=== PATIENT | female | born 1970 | race African-American/Black ===

== ENCOUNTER 2017-04-18 20:49 | Emergency (ER) | payer OTHER ==
[2017-04-18] MEDS ORDERED: KETOROLAC TROMETHAMINE 60 MG/2 ML SDV IM ONE (21:29)
[2017-04-18] MEDS ORDERED: HYDROCODONE/ACETAMINOPHEN 5-325 MG 6 TAB/DSPK PO PRN (21:29)
--- NOTE | 2017-04-18 21:35 | ER Document Report ---
ED Neck/Back Problem - General Chief Complaint: Back Pain Stated Complaint: BACK PAIN Time Seen by Provider: 04/18/17 21:28 Notes: 46 yo female c/o mid low back pain x 4 days. + radiculopathy into left hip and thigh. pt reports hx/o chronic back pain since 2001 but increased pain x 4 days. pt denies specific trauma. 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 pt denies any fever, bowel/bladder dysfunction, paresthesias. no hx/o cancer. no recent spinal/epidural injections. TRAVEL OUTSIDE OF THE [place] IN LAST 30 DAYS: No - HPI Patient complains to provider of: Pain Onset: Gradual Timing: Still present Quality of pain: Achy, Burning Pain Level: 4 Context: Bending, Lifting Recent injury: No Associated symptoms: Radiation to leg - left, Lower back pain. 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 Lives with: Family Family History: Arthritis, CAD, CVA, DM, Hyperlipidemia, Hypertension - Past Medical History Cardiac Medical History: Reports: Hx Hypertension Renal/ Medical History: Denies: Hx Peritoneal Dialysis Musculoskeltal Medical History: Reports Hx Musculoskeletal Deformity, Reports Hx Musculoskeletal Trauma Past Surgical History: Reports: Hx Section - Immunizations Immunizations up to date: Yes Hx Diphtheria, Pertussis, Tetanus Vaccination: Yes Review of Systems - Review of Systems Constitutional: No symptoms reported EENT: No symptoms reported Cardiovascular: No symptoms reported Respiratory: No symptoms reported Gastrointestinal: No symptoms reported Genitourinary: No symptoms reported Female Genitourinary: No symptoms reported Musculoskeletal: No symptoms reported Skin: No symptoms reported Hematologic/Lymphatic: No symptoms reported Neurological/Psychological: No symptoms reported Physical Exam - Vital signs Vitals: Temp Pulse Resp BP Pulse Ox 98.5 F 79 22 H 141/79 H 99 04/18/17 20:56 04/18/17 20:56 04/18/17 20:56 04/18/17 20:56 04/18/17 20:56 Interpretation: Normal - General General appearance: Appears well, Alert - HEENT Head: Normocephalic, Atraumatic Eyes: Normal Pupils: PERRL - Respiratory Respiratory status: No respiratory distress Chest status: Nontender Breath sounds: Normal Chest palpation: Normal - Cardiovascular Rhythm: Regular Heart sounds: Normal auscultation Murmur: No - Abdominal Inspection: Normal Distension: No distension Bowel sounds: Normal Tenderness: Nontender Organomegaly: No organomegaly - Back Back: Tender - midline lumbar tenderness. + left SI tenderness. neg SLT - Extremities General upper extremity: Normal inspection, Nontender, Normal color, Normal ROM , Normal temperature General lower extremity: Normal inspection, Nontender, Normal color, Normal ROM , Normal temperature, Normal weight bearing. No: Stephen's sign - Neurological Neuro grossly intact: Yes Cognition: Normal Orientation: AAOx4 [place] Coma Scale Eye Opening: Spontaneous [place] Coma Scale Verbal: Oriented [place] Coma Scale Motor: Obeys Commands [place] Coma Scale Total: 15 Speech: Normal Motor strength normal: LUE, RUE, LLE, RLE Sensory: Normal - Psychological Associated symptoms: Normal affect, Normal mood - Skin Skin Temperature: Warm Skin Moisture: Dry Skin Color: Normal Course - Re-evaluation Re-evalutation: 04/18/17 21:37 H&P c/w acute nonspecific low back pain. no neurologic deficits or red flags identified. no emergent imaging indicated. will treat with Toradol IM. i will write for a short prescription of pain medication and muscle relaxant and have patient follow up with primary care tomorrow. pt agreeable with plan and stable for discharge - Vital Signs Vital signs: Temp Pulse Resp BP Pulse Ox 98.5 F 79 22 H 141/79 H 99 04/18/17 20:56 04/18/17 20:56 04/18/17 20:56 04/18/17 20:56 04/18/17 20:56 Discharge - Discharge Clinical Impression: Low back pain Qualifiers: Chronicity: acute Back pain laterality: midline Sciatica presence: with sciatica Sciatica laterality: sciatica of left side Qualified Code(s): M54.42 - Lumbago with sciatica, left side Condition: Stable Disposition: HOME, SELF-CARE Instructions: Ice Packs ([facility]), Low Back Pain ([facility]), Oral Narcotic Medication ( [facility]), Sciatica ([facility]), Toradol Injection ([facility]) Additional Instructions: You have been given an injection of Toradol for pain relief and a short prescription of narcotic pain medication and muscle relaxant please follow up with your primary care tomorrow for further evaluation return to ER for any worsening of pain, fever, loss of bowel/bladder control Prescriptions: Hydrocodone/Acetaminophen [[place] 5-325 mg Tablet] 1 tab PO Q4 PRN #15 tablet PRN Reason: Severe Pain Methocarbamol [Robaxin 500 Mg Tablet] 1,000 mg PO Q6 #30 tablet Forms: Elevated Blood Pressure, Return to Work
[2017-04-18 22:20] VITALS: BP 136/89
== END 2017-04-18 22:16 | disposition home or self-care (01) ==
LOC: ER 20:49
DX: M54.42 Lumbago with sciatica, left side (principal); I10 Essential (primary) hypertension; F17.210 Nicotine dependence, cigarettes, uncomplicated
CPT/HCPCS: 99283; 96372; J1885

== ENCOUNTER 2019-05-30 20:17 | Inpatient (IN) | payer OTHER ==
[2019-05-30 20:56] LABS: APPEARANCE,URINE SLIGHTLY-CLOUDY; BILIRUBIN,URINE NEGATIVE (NEGATIVE); COLOR,URINE YELLOW; GLUCOSE, URINE NEGATIVE (NEGATIVE); KETONES,URINE NEGATIVE (NEGATIVE); LEUKOCYTE ESTERASE,URINE TRACE (NEGATIVE); NITRITE,URINE POSITIVE (NEGATIVE); PROTEIN,URINE NEGATIVE (NEGATIVE); URINE SPECIFIC GRAVITY 1.011; UROBILINOGEN,URINE NEGATIVE mg/dL (<2.0)
[2019-05-31 02:46] LABS: HEMATOCRIT 22.1 % (36.0-47.0); MEAN CORPUSCULAR HEMOGLOBIN 18.5 pg (27.0-33.4); MEAN CORPUSCULAR HGB CONC 29.6 g/dL (32.0-36.0); MEAN CORPUSCULAR VOLUME 63 fl (80-97); PLATELET COUNT 518 10^3/uL (150-450); RED BLOOD COUNT 3.54 10^6/uL (3.72-5.28); WHITE BLOOD COUNT 6.9 10^3/uL (4.0-10.5)
[2019-05-31] MEDS ORDERED: CEPHALEXIN 500 MG CAPSULE PO ONE (02:54)
--- NOTE | 2019-05-31 02:58 | ER Document Report ---
ED General - General Chief Complaint: Weakness Stated Complaint: WEAKNESS Time Seen by Provider: 05/31/19 02:49 Primary Care Provider: SONIA RUIZ MD [Primary Care Provider] - Follow up in 3-5 days TRAVEL OUTSIDE OF THE [place] IN LAST 30 DAYS: No - HPI Notes: Patient is a 48-year-old female that presents to the emergency department for chief complaint of generalized fatigue. Patient states she has been feeling more tired than usual and having cramping in her legs and arms for "a while". She states this is been going on for at least a month. The reason she came to the emergency room today was because someone at work called her "slow" and she felt she needed to be evaluated. Patient does report history of frequent UTIs and was on antibiotics about a month ago. She denies any current dysuria or frequency. Patient states that she feels dehydrated although she reports good oral intake of fluids. She denies any cough, congestion, chest pain, abdominal pain, nausea/vomiting, diarrhea, and fevers. Past Medical History: Negative Past Surgical History: Negative Social History: Daily tobacco. Denies alcohol or drug use Family History: Reviewed and noncontributory for presenting illness Allergies: Reviewed, see documented allergy list. REVIEW OF SYSTEMS: CONSTITUTIONAL : No fever No chills No diaphoresis No recent illness Fatigue EENT: No vision changes No congestion No sore throat CARDIOVASCULAR: No chest pain No palpitations RESPIRATORY: No shortness of breath No cough No difficulty breathing GASTROINTESTINAL: No abdominal pain No nausea No vomiting No diarrhea GENITOURINARY: No dysuria No hematuria No difficulty urinating MUSCULOSKELETAL: No back pain No leg pain No arm pain SKIN: No rashes No lesions LYMPHATIC: No swollen, enlarged glands. NEUROLOGICAL: No lightheadedness No headache No weakness No paresthesias PSYCHIATRIC: No anxiety No depression PHYSICAL EXAMINATION: Vital signs reviewed, nursing noted reviewed. GENERAL: Well-appearing, well-nourished and in no acute distress. HEAD: Atraumatic, normocephalic. EYES: Eyes appear normal, extraocular movements intact, sclera anicteric, conjunctiva are normal. ENT: nares patent, oropharynx clear without exudates. Mildly dry mucous membranes. NECK: Normal range of motion, supple without lymphadenopathy LUNGS: Breath sounds clear to auscultation bilaterally and equal. No wheezes rales or rhonchi. HEART: Regular rate and rhythm without murmurs ABDOMEN: Soft, nontender, normoactive bowel sounds. No rebound, guarding, or rigidity. No masses appreciated. EXTREMITIES: Nontender, good range of motion, no pitting or edema. NEUROLOGICAL: No focal neurological deficits. Moves all extremities spontaneously Motor and sensory grossly intact on exam. PSYCH: Normal mood, normal affect. SKIN: Warm, Dry, normal turgor, no rashes or lesions noted on exposed skin - Related Data Allergies/Adverse Reactions: No Known Allergies Allergy (Verified 06/20/16 14:11) Past Medical History - Social History Smoking Status: Never Smoker Family History: Arthritis, CAD, CVA, DM, Hyperlipidemia, Hypertension Patient has suicidal ideation: No Patient has homicidal ideation: No - Past Medical History Cardiac Medical History: Reports: Hx Hypertension Renal/ Medical History: Denies: Hx Peritoneal Dialysis Musculoskeletal Medical History: Reports Hx Musculoskeletal Deformity, Reports Hx Musculoskeletal Trauma Past Surgical History: Reports: Hx Section - Immunizations Immunizations up to date: Yes Hx Diphtheria, Pertussis, Tetanus Vaccination: Yes Physical Exam - Vital signs Vitals: Temp Pulse Resp BP Pulse Ox 98.3 F 99 18 141/73 H 99 05/30/19 20:32 05/30/19 20:32 05/30/19 20:32 05/30/19 20:32 05/30/19 20:32 Course - Re-evaluation Re-evalutation: 05/31/19 02:56 Vitals reviewed. Nursing notes reviewed. Patient is alert and mentating appropriately. She is in no acute distress. She has not had any vomiting and is able to tolerate oral rehydration. Patient's UA is positive for infection. She will be started on Keflex for her acute UTI which may be exaggerating her chronic fatigue. EKG shows sinus rhythm without ectopy or dysrhythmia. 05/31/19 03:53 Patient's lab work shows acute anemia. Her hemoglobin is 6.6. She denies any black or bloody stools. Patient will be transfused 2 units packed red blood cells and admitted to the hospital for further work-up of her anemia. Care discussed with Dr. Ruiz who accepts admission. Laboratory 05/30/19 05/31/19 05/31/19 20:25 02:30 02:30 WBC 6.9 RBC 3.54 L Hgb 6.6 L Hct 22.1 L MCV 63 L MCH 18.5 L MCHC 29.6 L RDW 28.0 H Plt Count 518 H Total Counted 100 Seg Neutrophils % Not Reportable Seg Neuts % (Manual) 55 Lymphocytes % Not Reportable Lymphocytes % (Manual) 30 Monocytes % Not Reportable Monocytes % (Manual) 10 Eosinophils % Not Reportable Eosinophils % (Manual) 2 Basophils % Not Reportable Basophils % (Manual) 3 H Absolute Neutrophils Not Reportable Abs Neuts (Manual) 3.8 Absolute Lymphocytes Not Reportable Abs Lymphs (Manual) 2.1 Absolute Monocytes Not Reportable Abs Monocytes (Manual) 0.9 Absolute Eosinophils Not Reportable Absolute Eos (Manual) 0.0 Absolute Basophils Not Reportable Abs Basophils (Manual) 0.1 Giant Platelets PRESENT Platelet Comment INCREASED Poikilocytosis 2+ Basophilic Stippling PRESENT Anisocytosis 3+ Microcytosis 3+ Tear Drop Cells 1+ Ovalocytes 1+ Sodium 140.4 Potassium 4.4 Chloride 108 H Carbon Dioxide 24 Anion Gap 8 BUN 16 Creatinine 0.86 Est GFR ( Amer) > 60 Est GFR (Non-Af Amer) > 60 Glucose 99 Calcium 11.0 H Total Bilirubin 0.3 Direct Bilirubin 0.3 Neonat Total Bilirubin Not Reportable Neonat Direct Bilirubin Not Reportable Neonat Indirect Bili Not Reportable AST 25 ALT 18 Alkaline Phosphatase 74 Total Protein 7.9 Albumin 4.3 Urine Color YELLOW Urine Appearance SLIGHTLY-CLOUDY Urine pH 6.0 Ur Specific [place] 1.011 Urine Protein NEGATIVE Urine Glucose (UA) NEGATIVE Urine Ketones NEGATIVE Urine Blood SMALL H Urine Nitrite POSITIVE H Urine Bilirubin NEGATIVE Urine Urobilinogen NEGATIVE Ur Leukocyte Esterase TRACE H Urine WBC (Auto) 7 Urine RBC (Auto) 2 Urine Bacteria (Auto) 1+ Squamous Epi Cells Auto 1 Urine Mucus (Auto) OCC Urine Ascorbic Acid NEGATIVE - Vital Signs Vital signs: Temp Pulse Resp BP Pulse Ox 98.3 F 99 18 141/73 H 99 05/30/19 20:32 05/30/19 20:32 05/30/19 20:32 05/30/19 20:32 05/30/19 20:32 - Laboratory Result Diagrams: 05/31/19 02:30 05/31/19 02:30 Laboratory results interpreted by me: 05/30/19 05/31/19 05/31/19 20:25 02:30 02:30 RBC 3.54 L Hgb 6.6 L Hct 22.1 L MCV 63 L MCH 18.5 L MCHC 29.6 L RDW 28.0 H Plt Count 518 H Basophils % (Manual) 3 H Chloride 108 H Calcium 11.0 H Urine Blood SMALL H Urine Nitrite POSITIVE H Ur Leukocyte Esterase TRACE H - EKG Interpretation by Me Additional EKG results interpreted by me: 05/31/19 02:57 Interpreted by myself [id number]: Normal sinus rhythm, rate 81, borderline left axis, no STEMI Discharge - Discharge Clinical Impression: Acute UTI Fatigue Qualifiers: Fatigue type: unspecified Qualified Code(s): R53.83 - Other fatigue Anemia Qualifiers: Anemia type: other cause Other causes of anemia: other cause, not classified Qualified Code(s): D64.89 - Other specified anemias Condition: Stable Disposition: ADMITTED INPATIENT Admitting Provider: [facility] Unit Admitted: Telemetry Prescriptions: Cephalexin Monohydrate [Keflex 500 mg Capsule] 500 mg PO BID 5 Days capsule
[2019-05-31 03:00] LABS: ALBUMIN 4.3 g/dL (3.5-5.0); ALKALINE PHOSPHATASE 74 U/L (38-126); ANION GAP 8 (5-19); ASPARTATE AMINO TRANSFERASE 25 U/L (14-36); BILIRUBIN,DIRECT 0.3 mg/dL (0.0-0.4); BILIRUBIN,TOTAL 0.3 mg/dL (0.2-1.3); BLOOD UREA NITROGEN 16 mg/dL (7-20); CARBON DIOXIDE 24 mmol/L (22-30); CHLORIDE 108 mmol/L (98-107); GLUCOSE 99 mg/dL (75-110); POTASSIUM 4.4 mmol/L (3.6-5.0); TOTAL PROTEIN 7.9 g/dL (6.3-8.2)
[2019-05-31 03:46] LABS: ABSOLUTE LYMPHOCYTES# (MANUAL) 2.1 10^3/uL (0.5-4.7); ABSOLUTE MONOCYTES # (MANUAL) 0.9 10^3/uL (0.1-1.4); LYMPHOCYTES % (MANUAL) 30 % (13-45); SEGMENTED NEUTROPHILS % (MAN) 55 % (42-78); TOTAL CELLS COUNTED 100
[2019-05-31 03:47] LABS: BASOPHILS % (MANUAL) 3 % (0-2); EOSINOPHILS % (MANUAL) 2 % (0-6); MONOCYTES % (MANUAL) 10 % (3-13)
[2019-05-31 03:48] LABS: PLATELET COMMENT INCREASED; PLATELET GIANT PRESENT
[2019-05-31 03:49] LABS: ANISOCYTOSIS 3+; OVALOCYTES 1+; POIKILOCYTOSIS 2+; TEAR DROP CELLS 1+
[2019-05-31] MEDS ORDERED: NORMAL SALINE 250 ML IV PRN ×4 (03:50→17:26)
[2019-05-31 03:53] LABS: HEMOGLOBIN 6.6 g/dL (12.0-15.5)
[2019-05-31 09:23] LABS: ABSOLUTE RETICS # 0.073 10^6/uL (0.028-0.122); RETICULOCYTE COUNT (AUTO) 2.08 % (0.66-2.85)
[2019-05-31 10:26] LABS: FERRITIN 5.36 ng/mL (6.2-137.0); FOLATE 7.55 ng/mL (>2.76); IRON(TIBC) 17.4 ug/dL (37-170)
[2019-05-31 12:06] LABS: HEMATOCRIT 27.2 % (36.0-47.0); HEMOGLOBIN 8.6 g/dL (12.0-15.5); MEAN CORPUSCULAR HEMOGLOBIN 21.3 pg (27.0-33.4); MEAN CORPUSCULAR HGB CONC 31.6 g/dL (32.0-36.0); PLATELET COUNT 466 10^3/uL (150-450); RED BLOOD COUNT 4.03 10^6/uL (3.72-5.28); RED CELL DISTRIBUTION WIDTH 31.8 % (11.5-14.0); WHITE BLOOD COUNT 5.3 10^3/uL (4.0-10.5)
[2019-05-31 12:24] LABS: ANION GAP 8 (5-19); BLOOD UREA NITROGEN 15 mg/dL (7-20); CALCIUM 10.6 mg/dL (8.4-10.2); CARBON DIOXIDE 25 mmol/L (22-30); CHLORIDE 107 mmol/L (98-107); GLUCOSE 115 mg/dL (75-110); POTASSIUM 4.5 mmol/L (3.6-5.0)
[2019-05-31 13:11] LABS: MEAN CORPUSCULAR VOLUME 67 fl (80-97)
[2019-05-31 13:19] LABS: ABSOLUTE LYMPHOCYTES# (MANUAL) 1.3 10^3/uL (0.5-4.7); ABSOLUTE MONOCYTES # (MANUAL) 0.1 10^3/uL (0.1-1.4); BASOPHILS % (MANUAL) 1 % (0-2); EOSINOPHILS % (MANUAL) 2 % (0-6); LYMPHOCYTES % (MANUAL) 25 % (13-45); MONOCYTES % (MANUAL) 1 % (3-13); SEGMENTED NEUTROPHILS % (MAN) 71 % (42-78); TOTAL CELLS COUNTED 100
[2019-05-31 13:20] LABS: ANISOCYTOSIS 4+; BURR CELLS 1+; HYPOCHROMASIA 3+; OVALOCYTES 1+; PLATELET COMMENT INCREASED; POIKILOCYTOSIS 1+; POLYCHROMASIA SLIGHT
--- NOTE | 2019-05-31 17:25 | PDOC H&P ---
History of Present Illness Admission Date/PCP: 05/31/19 03:55 SONIA RUIZ MD History of Present Illness: TYRELL MONTGOMERY is a 48 year old female, Patient was in the office on April 17, 2019 for follow-up evaluation, at the time she had comprehensive blood work including hemogram, the hemoglobin was 6 from the blood work done in the office on 04/17/2019, she was called on her cell phone, on the line phone without any response a letter was sent to her residence she did not call the office back until today when she presented to the emergency room with severe fatigue and she was found again to be anemic with hemoglobin of 6 it is iron deficiency type anemia. She denied any GI bleed or any vaginal bleeding.She is a recalcitrant smoker, she is also found to have hypercalcemia ,the serum PTH was 78 which is elevated, suggesting that the hypercalcemia is PTH mediated consistent with primary hyperparathyroidism and not necessarily a malignant hypercalcemia. Patient will be transfused but she will need GI endoscopy before she is discharged on this admission especially in this patient that have shown a pattern of noncompliance and inconsistent in her care as indicated patient was known to have severe anemia since April 17, 2019 but patient could not be reached by all the available means that we know how including telephone, mail etc. Past Medical History Cardiac Medical History: Reports: Hypertension Hematology: Reports: Anemia - won't take iron Past Surgical History Past Surgical History: Reports: Section Social History Smoking Status: Current Every Day Smoker Cigarettes Packs Per Day: 1 Last Time Smoked: 05/30/2019 Frequency of Alcohol Use: None Hx Recreational Drug Use: No Drugs: None Hx Prescription Drug Abuse: No Family History Family History: Arthritis, CAD, CVA, DM, Hyperlipidemia, Hypertension Parental Family History Reviewed: Yes Children Family History Reviewed: Yes Sibling(s) Family History Reviewed.: Yes Medication/Allergy Home Medications: No Home Medications 05/31/19 Allergies/Adverse Reactions: No Known Allergies Allergy (Verified 05/31/19 08:01) Review of Systems Constitutional: PRESENT: fatigue Eyes: ABSENT: visual disturbances Ears: ABSENT: hearing changes Cardiovascular: ABSENT: chest pain, dyspnea on exertion, edema, orthropnea, palpitations Respiratory: ABSENT: cough, hemoptysis Gastrointestinal: ABSENT: abdominal pain, constipation, diarrhea, hematemesis, hematochezia, nausea, vomiting Genitourinary: ABSENT: dysuria, hematuria Musculoskeletal: ABSENT: joint swelling Integumentary: ABSENT: rash, wounds Neurological: ABSENT: abnormal gait, abnormal speech, confusion, dizziness, focal weakness, syncope Psychiatric: ABSENT: anxiety, depression, homidical ideation, suicidal ideation Endocrine: ABSENT: cold intolerance, heat intolerance, menstrual abnormalities, polydipsia, polyuria Hematologic/Lymphatic: ABSENT: easy bleeding, easy bruising, lymphadenopathy Physical Exam Vital Signs: Temp Pulse Resp BP Pulse Ox 98.5 F 83 18 139/80 H 100 05/31/19 10:00 05/31/19 14:00 05/31/19 10:00 05/31/19 10:00 05/31/19 10:00 Intake & Output 05/30/19 05/31/19 06/01/19 06:59 06:59 06:59 Intake Total 0 1070 Balance 0 1070 Weight 82.6 kg General appearance: PRESENT: no acute distress Head exam: PRESENT: atraumatic, normocephalic Eye exam: PRESENT: conjunctiva pale Ear exam: PRESENT: normal external ear exam Mouth exam: PRESENT: moist, tongue midline Neck exam: PRESENT: full ROM Respiratory exam: PRESENT: clear to auscultation isacc Cardiovascular exam: PRESENT: RRR, +S1, +S2 Vascular exam: PRESENT: normal capillary refill GI/Abdominal exam: PRESENT: normal bowel sounds, soft Rectal exam: PRESENT: deferred Neurological exam: PRESENT: alert, CN II-XII grossly intact. ABSENT: motor sensory deficit Skin exam: PRESENT: dry, intact, warm Results Laboratory Results: 05/31/19 11:46 05/31/19 11:46 05/30/19 05/31/19 05/31/19 20:25 02:30 02:30 WBC 6.9 RBC 3.54 L Hgb 6.6 L Hct 22.1 L MCV 63 L MCH 18.5 L MCHC 29.6 L RDW 28.0 H Plt Count 518 H Seg Neutrophils % Not Reportable Lymphocytes % Not Reportable Monocytes % Not Reportable Eosinophils % Not Reportable Basophils % Not Reportable Absolute Neutrophils Not Reportable Absolute Lymphocytes Not Reportable Absolute Monocytes Not Reportable Absolute Eosinophils Not Reportable Absolute Basophils Not Reportable Retic Count (auto) Sodium 140.4 Potassium 4.4 Chloride 108 H Carbon Dioxide 24 Anion Gap 8 BUN 16 Creatinine 0.86 Est GFR ( Amer) > 60 Est GFR (Non-Af Amer) > 60 Glucose 99 Calcium 11.0 H Iron TIBC % Saturation Ferritin Total Bilirubin 0.3 AST 25 Alkaline Phosphatase 74 Total Protein 7.9 Albumin 4.3 Vitamin B12 Folate PTH Intact Urine Color YELLOW Urine Appearance SLIGHTLY-CLOUDY Urine pH 6.0 Ur Specific [place] 1.011 Urine Protein NEGATIVE Urine Glucose (UA) NEGATIVE Urine Ketones NEGATIVE Urine Blood SMALL H Urine Nitrite POSITIVE H Ur Leukocyte Esterase TRACE H Urine WBC (Auto) 7 Urine RBC (Auto) 2 Blood Type Antibody Screen 05/31/19 05/31/19 05/31/19 02:30 02:30 02:30 WBC RBC Hgb Hct MCV MCH MCHC RDW Plt Count Seg Neutrophils % Lymphocytes % Monocytes % Eosinophils % Basophils % Absolute Neutrophils Absolute Lymphocytes Absolute Monocytes Absolute Eosinophils Absolute Basophils Retic Count (auto) Not Reportable 2.08 Sodium Potassium Chloride Carbon Dioxide Anion Gap BUN Creatinine Est GFR ( Amer) Est GFR (Non-Af Amer) Glucose Calcium Iron Cancelled TIBC Cancelled % Saturation Cancelled Ferritin 5.36 L Total Bilirubin AST Alkaline Phosphatase Total Protein Albumin Vitamin B12 799.0 Folate 7.55 PTH Intact Urine Color Urine Appearance Urine pH Ur Specific [place] Urine Protein Urine Glucose (UA) Urine Ketones Urine Blood Urine Nitrite Ur Leukocyte Esterase Urine WBC (Auto) Urine RBC (Auto) Blood Type Antibody Screen 05/31/19 05/31/19 05/31/19 02:30 04:15 11:46 WBC 5.3 RBC 4.03 Hgb 8.6 L Hct 27.2 L MCV 67 L D MCH 21.3 L MCHC 31.6 L RDW 31.8 H Plt Count 466 H Seg Neutrophils % Not Reportable Lymphocytes % Monocytes % Eosinophils % Basophils % Absolute Neutrophils Absolute Lymphocytes Absolute Monocytes Absolute Eosinophils Absolute Basophils Retic Count (auto) Sodium Potassium Chloride Carbon Dioxide Anion Gap BUN Creatinine Est GFR ( Amer) Est GFR (Non-Af Amer) Glucose Calcium Iron 17.4 L TIBC 442 % Saturation 4 Ferritin Total Bilirubin AST Alkaline Phosphatase Total Protein Albumin Vitamin B12 Folate PTH Intact Urine Color Urine Appearance Urine pH Ur Specific [place] Urine Protein Urine Glucose (UA) Urine Ketones Urine Blood Urine Nitrite Ur Leukocyte Esterase Urine WBC (Auto) Urine RBC (Auto) Blood Type A POSITIVE Antibody Screen NEGATIVE 05/31/19 05/31/19 11:46 15:19 WBC RBC Hgb Hct MCV MCH MCHC RDW Plt Count Seg Neutrophils % Lymphocytes % Monocytes % Eosinophils % Basophils % Absolute Neutrophils Absolute Lymphocytes Absolute Monocytes Absolute Eosinophils Absolute Basophils Retic Count (auto) Sodium 140.0 Potassium 4.5 Chloride 107 Carbon Dioxide 25 Anion Gap 8 BUN 15 Creatinine 0.75 Est GFR ( Amer) > 60 Est GFR (Non-Af Amer) Glucose 115 H Calcium 10.6 H Iron TIBC % Saturation Ferritin Total Bilirubin AST Alkaline Phosphatase Total Protein Albumin Vitamin B12 Folate PTH Intact 74.5 H Urine Color Urine Appearance Urine pH Ur Specific [place] Urine Protein Urine Glucose (UA) Urine Ketones Urine Blood Urine Nitrite Ur Leukocyte Esterase Urine WBC (Auto) Urine RBC (Auto) Blood Type Antibody Screen Assessment & Plan - Diagnosis (1) Iron deficiency anemia Qualifiers: Iron deficiency anemia type: unspecified iron deficiency Qualified Code(s): D50.9 - Iron deficiency anemia, unspecified Is this a current diagnosis for this admission?: Yes Plan: She presented with severe symptomatic iron deficiency anemia, she will be transfused with packed red blood cells, she will need GI endoscopy consultation will be requested from surgery (2) Primary hyperparathyroidism Is this a current diagnosis for this admission?: Yes Plan: She has primary hyperparathyroidism need further evaluation to determine need for surgery, she will need bone density measurement,etc
--- NOTE | 2019-05-31 17:34 | EKG REPORT ---
SEVERITY:- OTHERWISE NORMAL ECG - SINUS RHYTHM BORDERLINE LEFT AXIS DEVIATION : Confirmed by: Bridgett Lucia MD 31-May-2019 17:34:13
--- NOTE | 2019-05-31 17:45 | PDOC CONSULTATION ---
Consultation Consult Date: 05/31/19 Provider Consulted: RAISA RIOS Consult reason:: anemia History of Present Illness Admission Date/PCP: 05/31/19 03:55 SONIA RUIZ MD Patient complains of: weakness History of Present Illness: TYRELL MONTGOMERY is a 48 year old female, poorly compliant, who self checked to the Ed c/o weakness. Her CBC showed moderately severe anemia with an H/H of 6.6 and 22.21. She denies BRBPR, hematemesis, general symptoms, fever, weight loss, loss of appetite. She has been transfused 2 units of PRBC with an appropriately increased H/H 8.6/27.2. Inciswntally, her calcium level is elevated (11) with an elevated PTH (74.5). Past Medical History Cardiac Medical History: Reports: Hypertension Hematology: Reports: Anemia - won't take iron Past Surgical History Past Surgical History: Reports: Section Social History Smoking Status: Current Every Day Smoker Cigarettes Packs Per Day: 1 Last Time Smoked: 05/30/2019 Frequency of Alcohol Use: None Hx Recreational Drug Use: No Drugs: None Hx Prescription Drug Abuse: No Family History Family History: Arthritis, CAD, CVA, DM, Hyperlipidemia, Hypertension Parental Family History Reviewed: No Children Family History Reviewed: No Sibling(s) Family History Reviewed.: No Medication/Allergy Home Medications: No Home Medications 05/31/19 Allergies/Adverse Reactions: No Known Allergies Allergy (Verified 05/31/19 08:01) Physical Exam Vital Signs: Temp Pulse Resp BP Pulse Ox 98.5 F 83 18 139/80 H 100 05/31/19 10:00 05/31/19 14:00 05/31/19 10:00 05/31/19 10:00 05/31/19 10:00 Intake & Output 05/30/19 05/31/19 06/01/19 06:59 06:59 06:59 Intake Total 0 1070 Balance 0 1070 Weight 82.6 kg General appearance: PRESENT: no acute distress Head exam: PRESENT: atraumatic Eye exam: PRESENT: EOMI Mouth exam: PRESENT: moist, neck supple Teeth exam: PRESENT: poor dentation Neck exam: PRESENT: full ROM Respiratory exam: PRESENT: clear to auscultation isacc Cardiovascular exam: PRESENT: RRR GI/Abdominal exam: PRESENT: normal bowel sounds, soft Rectal exam: PRESENT: deferred Extremities exam: PRESENT: full ROM Musculoskeletal exam: PRESENT: full ROM Neurological exam: PRESENT: alert, awake Psychiatric exam: PRESENT: appropriate affect Skin exam: PRESENT: warm Results Laboratory Results: 05/31/19 11:46 05/31/19 11:46 05/30/19 05/31/19 05/31/19 20:25 02:30 02:30 WBC 6.9 RBC 3.54 L Hgb 6.6 L Hct 22.1 L MCV 63 L MCH 18.5 L MCHC 29.6 L RDW 28.0 H Plt Count 518 H Seg Neutrophils % Not Reportable Lymphocytes % Not Reportable Monocytes % Not Reportable Eosinophils % Not Reportable Basophils % Not Reportable Absolute Neutrophils Not Reportable Absolute Lymphocytes Not Reportable Absolute Monocytes Not Reportable Absolute Eosinophils Not Reportable Absolute Basophils Not Reportable Retic Count (auto) Sodium 140.4 Potassium 4.4 Chloride 108 H Carbon Dioxide 24 Anion Gap 8 BUN 16 Creatinine 0.86 Est GFR ( Amer) > 60 Est GFR (Non-Af Amer) > 60 Glucose 99 Calcium 11.0 H Iron TIBC % Saturation Ferritin Total Bilirubin 0.3 AST 25 Alkaline Phosphatase 74 Total Protein 7.9 Albumin 4.3 Vitamin B12 Folate PTH Intact Urine Color YELLOW Urine Appearance SLIGHTLY-CLOUDY Urine pH 6.0 Ur Specific Dearing 1.011 Urine Protein NEGATIVE Urine Glucose (UA) NEGATIVE Urine Ketones NEGATIVE Urine Blood SMALL H Urine Nitrite POSITIVE H Ur Leukocyte Esterase TRACE H Urine WBC (Auto) 7 Urine RBC (Auto) 2 Blood Type Antibody Screen 05/31/19 05/31/19 05/31/19 02:30 02:30 02:30 WBC RBC Hgb Hct MCV MCH MCHC RDW Plt Count Seg Neutrophils % Lymphocytes % Monocytes % Eosinophils % Basophils % Absolute Neutrophils Absolute Lymphocytes Absolute Monocytes Absolute Eosinophils Absolute Basophils Retic Count (auto) Not Reportable 2.08 Sodium Potassium Chloride Carbon Dioxide Anion Gap BUN Creatinine Est GFR ( Amer) Est GFR (Non-Af Amer) Glucose Calcium Iron Cancelled TIBC Cancelled % Saturation Cancelled Ferritin 5.36 L Total Bilirubin AST Alkaline Phosphatase Total Protein Albumin Vitamin B12 799.0 Folate 7.55 PTH Intact Urine Color Urine Appearance Urine pH Ur Specific Dearing Urine Protein Urine Glucose (UA) Urine Ketones Urine Blood Urine Nitrite Ur Leukocyte Esterase Urine WBC (Auto) Urine RBC (Auto) Blood Type Antibody Screen 05/31/19 05/31/19 05/31/19 02:30 04:15 11:46 WBC 5.3 RBC 4.03 Hgb 8.6 L Hct 27.2 L MCV 67 L D MCH 21.3 L MCHC 31.6 L RDW 31.8 H Plt Count 466 H Seg Neutrophils % Not Reportable Lymphocytes % Monocytes % Eosinophils % Basophils % Absolute Neutrophils Absolute Lymphocytes Absolute Monocytes Absolute Eosinophils Absolute Basophils Retic Count (auto) Sodium Potassium Chloride Carbon Dioxide Anion Gap BUN Creatinine Est GFR ( Amer) Est GFR (Non-Af Amer) Glucose Calcium Iron 17.4 L TIBC 442 % Saturation 4 Ferritin Total Bilirubin AST Alkaline Phosphatase Total Protein Albumin Vitamin B12 Folate PTH Intact Urine Color Urine Appearance Urine pH Ur Specific Dearing Urine Protein Urine Glucose (UA) Urine Ketones Urine Blood Urine Nitrite Ur Leukocyte Esterase Urine WBC (Auto) Urine RBC (Auto) Blood Type A POSITIVE Antibody Screen NEGATIVE 05/31/19 05/31/19 11:46 15:19 WBC RBC Hgb Hct MCV MCH MCHC RDW Plt Count Seg Neutrophils % Lymphocytes % Monocytes % Eosinophils % Basophils % Absolute Neutrophils Absolute Lymphocytes Absolute Monocytes Absolute Eosinophils Absolute Basophils Retic Count (auto) Sodium 140.0 Potassium 4.5 Chloride 107 Carbon Dioxide 25 Anion Gap 8 BUN 15 Creatinine 0.75 Est GFR ( Amer) > 60 Est GFR (Non-Af Amer) Glucose 115 H Calcium 10.6 H Iron TIBC % Saturation Ferritin Total Bilirubin AST Alkaline Phosphatase Total Protein Albumin Vitamin B12 Folate PTH Intact 74.5 H Urine Color Urine Appearance Urine pH Ur Specific Dearing Urine Protein Urine Glucose (UA) Urine Ketones Urine Blood Urine Nitrite Ur Leukocyte Esterase Urine WBC (Auto) Urine RBC (Auto) Blood Type Antibody Screen Status: Imported from PACS Assessment & Plan - Diagnosis (1) Anemia Qualifiers: Anemia type: other cause Other causes of anemia: other cause, not classifie d Qualified Code(s): D64.89 - Other specified anemias - Plan Summary Plan Summary: A/ 48 y/o female with anemia of unknown cause no associated symptoms H/H= 6.6/22.1 Transfusion of 2 units PRBC with appropriate elevation of H/H = 8.6/27 P/ Plan EGD / colonoscopy w/ biopsy in AM under IV sedation Procedure, risks, benefits, complications explained to the patient, her questions were answered. However she is hesitant to undergo the procedure. I have communicate the above to Dr. Ruiz, who will approach the patient.
[2019-05-31] MEDS ORDERED: BISACODYL 5 MG TABEC PO ONE (19:00)
[2019-05-31] MEDS ORDERED: NA PHOS,M-B/NA PHOS,DI-BA (ADULT) 133 ML ENEMA PR ONE (19:00)
[2019-05-31] MEDS ORDERED: PEG 3350/NA SULF,BICARB,CL/KCL 4000 ML PO ONE (19:30)
[2019-06-01 06:25] LABS: FERRITIN 8.05 ng/mL (6.2-137.0)
[2019-06-01 06:27] LABS: HEMATOCRIT 30.8 % (36.0-47.0); HEMOGLOBIN 9.8 g/dL (12.0-15.5); MEAN CORPUSCULAR HEMOGLOBIN 22.4 pg (27.0-33.4); MEAN CORPUSCULAR HGB CONC 31.8 g/dL (32.0-36.0); MEAN CORPUSCULAR VOLUME 70 fl (80-97); PLATELET COUNT 447 10^3/uL (150-450); RED BLOOD COUNT 4.38 10^6/uL (3.72-5.28); RED CELL DISTRIBUTION WIDTH 32.4 % (11.5-14.0); WHITE BLOOD COUNT 7.6 10^3/uL (4.0-10.5)
[2019-06-01 06:28] LABS: RETICULOCYTE COUNT (AUTO) 1.37 % (0.66-2.85)
[2019-06-01 06:55] LABS: FOLATE 6.08 ng/mL (>2.76)
[2019-06-01] MEDS ORDERED: ACETAMINOPHEN 325 MG TABLET PO PRN (08:00)
--- NOTE | 2019-06-01 10:12 | Progress Note ---
Provider Note Provider Note: Events noted. Patient declines offer for EGD/colonoscopy. Despite conversation with the patient in front of the nurse yesterday for a very long time, she still declines the procedures A/ Anemia, unknown cause Patient is declining both procedures for personal reasons P/ I will sign off. I will be available to perform EGD and colonoscopy if she wishes both procedures in the future.
[2019-06-01 11:30] VITALS: BP 125/84
--- NOTE | 2019-06-01 20:46 | PDOC DISCHARGE SUMMARY ---
General - Admit/Disc Date/PCP Admission Date/Primary Care Provider: 05/31/19 03:55 SONIA RUIZ MD Discharge Date: 06/01/19 - Discharge Diagnosis (1) Iron deficiency anemia Is this a current diagnosis for this admission?: Yes (2) Primary hyperparathyroidism Is this a current diagnosis for this admission?: Yes - Additional Information Discharge Diet: As Tolerated Discharge Activity: Activity As Tolerated Prescriptions: Ferrous Sulfate [Albafort] 325 mg PO BID #180 tablet Home Medications: Ferrous Sulfate [Albafort] 325 mg PO BID #180 tablet 06/01/19 History of Present Illness History of Present Illness: TYRELL MONTGOMERY is a 48 year old female, Patient was in the office on April 17, 2019 for follow-up evaluation, at the time she had comprehensive blood work including hemogram, the hemoglobin was 6 from the blood work done in the office on 04/17/2019, she was called on her cell phone, on the line phone without any response a letter was sent to her residence she did not call the office back until today when she presented to the emergency room with severe fatigue and she was found again to be anemic with hemoglobin of 6 it is iron deficiency type anemia. She denied any GI bleed or any vaginal bleeding.She is a recalcitrant smoker, she is also found to have hypercalcemia ,the serum PTH was 78 which is elevated, suggesting that the hypercalcemia is PTH mediated consistent with primary hyperparathyroidism and not necessarily a malignant hypercalcemia. Patient will be transfused but she will need GI endoscopy before she is discharged on this admission especially in this patient that have shown a pattern of noncompliance and inconsistent in her care as indicated patient was known to have severe anemia since April 17, 2019 but patient could not be reached by all the available means that we know how including telephone, mail etc. Hospital Course Hospital Course: Patient was admitted for the management of severe iron deficiency anemia, the hemoglobin was 6, she was transfused with red blood cells. She was also found to have pulmonary hyperparathyroidism with elevated serum calcium. She was advised to undergo GI endoscopy for the evaluation of the iron deficiency anemia but patient refused, despite multiple counseling and advise for to get the procedure done she consistently and persistently refused to have it done.She decided to leave the hospital today Physical Exam Vital Signs: Temp Pulse Resp BP Pulse Ox 98.9 F 71 18 125/84 100 06/01/19 11:29 06/01/19 11:29 06/01/19 11:29 06/01/19 11:29 06/01/19 11:29 Intake & Output 05/31/19 06/01/19 06/02/19 06:59 06:59 06:59 Intake Total 0 2560 Balance 0 2560 Weight 82.6 kg 82.8 kg General appearance: PRESENT: no acute distress Eye exam: PRESENT: PERRLA Neck exam: PRESENT: full ROM Respiratory exam: PRESENT: clear to auscultation isacc Cardiovascular exam: PRESENT: RRR, +S1, +S2 Vascular exam: PRESENT: normal capillary refill GI/Abdominal exam: PRESENT: normal bowel sounds, soft Rectal exam: PRESENT: deferred Neurological exam: PRESENT: alert, CN II-XII grossly intact Psychiatric exam: PRESENT: appropriate affect, normal mood Skin exam: PRESENT: dry, intact, warm Results Laboratory Results: 06/01/19 04:39 05/31/19 11:46 05/31/19 06/01/19 06/01/19 04:15 04:39 04:39 WBC RBC Hgb Hct MCV MCH MCHC RDW Plt Count Retic Count (auto) 1.37 Ferritin 8.05 Vitamin B12 722.0 Folate 6.08 Blood Type A POSITIVE Antibody Screen NEGATIVE 06/01/19 04:39 WBC 7.6 RBC 4.38 Hgb 9.8 L Hct 30.8 L MCV 70 L MCH 22.4 L MCHC 31.8 L RDW 32.4 H Plt Count 447 Retic Count (auto) Ferritin Vitamin B12 Folate Blood Type Antibody Screen 05/30/19 20:25 Clean Catch Midstream Urine Culture - Final Escherichia Coli Qualifiers - * PATIENT BEING DISCHARGED WITH ANY OF THE FOLLOWING DIAGNOSIS: No VTE patient discharged on overlapping Therapy?: No Reason(s) for not prescribing Overlap Therapy:: Not indicated Stroke Pt being discharged on Anti-thrombolytic therapy?: No Reason(s) for not prescribing Anti-thrombolytic therapy:: Not indicated Stroke Pt being discharged on Anti-coagulation therapy?: No Reason(s) for not prescribing Anti-coagulation therapy:: Not indicated Stroke Pt being discharged on Statins?: No Reason(s) for not prescribing Statins therapy:: Not indicated NM Pt being discharged on Aspirin therapy?: No Reason(s) for not prescribing Aspirin therapy:: Not indicated NM Pt being discharged on Statins?: No Reason(s) for not prescribing Statin therapy:: Not indicated NM Pt discharged ACEI/ARBS?: No Reason(s) for not prescribing ACEI/ARBS:: Not indicated Acute Heart Failure - Is this a Heart Failure Patient?: No d) Discharged on evidence-based Beta courtney(carvedilol, sustained release met oprolol succinate, or bisoprolol)?: Yes 3. Anticoagulant therapy for permanect/persistent/paraoxysmal Afib or Aflutter: N/A
== END 2019-06-01 12:30 | disposition home or self-care (01) | DRG 812 ==
LOC: ER 20:17 → EH 05-31 03:55 → 3N 05-31 09:17
PROVIDERS: ADMIT Internal Medicine; ATTEND Internal Medicine
PROC: 30233N1 Transfusion of Nonautologous Red Blood Cells into Peripheral Vein, Percutaneous Approach (ICD-10-PCS; principal; 2019-05-31)
DX: D50.9 Iron deficiency anemia, unspecified (principal); E21.3 Hyperparathyroidism, unspecified; Z53.29 Procedure and treatment not carried out because of patient's decision for other reasons; F17.210 Nicotine dependence, cigarettes, uncomplicated; Z91.19 Patient's noncompliance with other medical treatment and regimen; Z82.49 Family history of ischemic heart disease and other diseases of the circulatory system; Z82.3 Family history of stroke; Z83.3 Family history of diabetes mellitus
CPT/HCPCS: 36415; 36430; 80053; 81001; 82378; 82607; 82728; 82746; 83540; 83550; 83970; 85025; 85027; 85045; 86850; 86900; 86901; 86920; 86922; 87086; 87088; 87186; 93005; 93010; 99284; J3490; P9016

== ENCOUNTER 2020-07-03 15:26 | Emergency (ER) | payer BC ==
[2020-07-03 15:32] VITALS: BP 123/75
[2020-07-03] MEDS ORDERED: TETRACAINE HCL 0.5% OPH SOLN 4 ML OS ONE (16:12)
--- NOTE | 2020-07-03 17:01 | ER Document Report ---
HPI - HPI Patient complains to provider of: Left eye pain Time Seen by Provider: 07/03/20 16:06 Pain Level: 3 Notes: 49-year-old female to the emergency department with complaints of left eye pain that began last night. She states she awoke this morning with continued pain and like her eye was matted shut. She states she has had a lot of photophobia as well as discharge from the eye. She does not wear contacts or glasses. She states that she noticed her symptoms started after she was at work and thinks she may have gotten a piece of food in her eye. - ROS Systems Reviewed and Negative: Yes All other systems reviewed and negative - EENT EENT: REPORTS: Eye problems - See HPI. DENIES: Sore Throat, Ear Pain - NEURO Neurology: DENIES: Headache, Weakness - CARDIOVASCULAR Cardiovascular: DENIES: Chest pain - RESPIRATORY Respiratory: DENIES: Trouble Breathing, Coughing - GASTROINTESTINAL Gastrointestinal: DENIES: Abdominal Pain, Nausea, Patient vomiting, Diarrhea - REPRODUCTIVE LMP: 16 Sep Reproductive: DENIES: : - DERM Skin Color: Normal Skin Problems: None Past Medical History - General Information source: Patient - Social History Smoking Status: Current Every Day Smoker Chew tobacco use (# tins/day): No Frequency of alcohol use: None Drug Abuse: None Family History: Arthritis, CAD, CVA, DM, Hyperlipidemia, Hypertension - Past Medical History Cardiac Medical History: Reports: Hx Hypertension Renal/ Medical History: Denies: Hx Peritoneal Dialysis Musculoskeletal Medical History: Reports Hx Musculoskeletal Deformity, Reports Hx Musculoskeletal Trauma Past Surgical History: Reports: Hx Section - Immunizations Immunizations up to date: Yes Hx Diphtheria, Pertussis, Tetanus Vaccination: Yes Vertical Provider Document - CONSTITUTIONAL Agree With Documented VS: Yes General Appearance: Moderate Distress Notes: Moderate pain distress. Patient has a lot of photosensitivity to the light in her left eye - INFECTION CONTROL TRAVEL OUTSIDE OF THE [place] IN LAST 30 DAYS: No - HEENT HEENT: Atraumatic, Normocephalic, PERRLA Notes: The left eye sclera is erythematous and irritated. There is significant tearing. With lamp exam after applying tetracaine and stained to the left eye illustrates a corneal abrasion at about 5:00 on the left cornea. Patient ulceration. There is no Restylane. There is no evidence for foreign body. There is no hyphema. There is no blood in the anterior chamber. - NECK Neck: Normal Inspection, Supple - RESPIRATORY Respiratory: Breath Sounds Normal. negative: Rales, Rhonchi, Wheezing - CARDIOVASCULAR Cardiovascular: Regular Rate, Regular Rhythm, No Murmur - GI/ABDOMEN Gastrointestinal: Abdomen Soft, Abdomen Non-Tender - NEURO Level of Consciousness: Awake, Alert, Appropriate Motor/Sensory: No Motor Deficit, No Sensory Deficit - DERM Integumentary: Warm Course - Re-evaluation Re-evalutation: Impression: Corneal abrasion of the left eye. We will start her erythromycin ointment. We will also give refresh tears. Patient is to call ophthalmology tomorrow follow-up closely. She is to return if worsening symptoms. She agrees with plan. - Vital Signs Vital signs: Temp Pulse Resp BP Pulse Ox 98.5 F 79 16 123/75 100 07/03/20 15:30 07/03/20 15:30 07/03/20 15:30 07/03/20 15:30 07/03/20 15:30 Discharge - Discharge Clinical Impression: Left eye pain Corneal abrasion, left Qualifiers: Encounter type: initial encounter Qualified Code(s): S05.02XA - Injury of conjunctiva and corneal abrasion without foreign body, left eye, initial encounter Condition: Stable Disposition: HOME, SELF-CARE Instructions: Corneal Abrasion ([facility]) Additional Instructions: USE MEDICINE PRESCRIBED. FOLLOW UP WITH THE EYE DOCTOR WITHOUT FAIL. Prescriptions: Erythromycin Base [Erythromycin Oph 1 Gm Oint Ud] 1 applic OS QID #1 tube Carboxymethylcellulose Sodium [Refresh Tears] 3 drop OS PRN PRN #30 ml PRN Reason: Forms: Return to Work Referrals: SONIA RUIZ MD [Primary Care Provider] - Follow up in 3-5 days DG CASTANEDA DO [ACTIVE STAFF] - Follow up in 3-5 days (for eye follow up)
== END 2020-07-03 17:09 | disposition home or self-care (01) ==
LOC: ER 15:26
DX: S05.02XA Injury of conjunctiva and corneal abrasion without foreign body, left eye, initial encounter (principal); X58.XXXA Exposure to other specified factors, initial encounter; H53.142 Visual discomfort, left eye; F17.200 Nicotine dependence, unspecified, uncomplicated; I10 Essential (primary) hypertension
CPT/HCPCS: 99282; J3490